=== PATIENT | female | born 1985 | race Caucasian/White ===

== ENCOUNTER 2016-10-11 03:25 | Inpatient (IN) | payer BC ==
[~2016-10-11] VITALS: Ht 172.7 cm; Wt 88.2 kg
[~2016-10-11 03:25] MED LIST: MTR600X PO; PRENTAB26 PO
[2016-10-11] MEDS ORDERED: LACTATED RINGER'S 1000ML 1,000 ML IV PRN (04:09)
[2016-10-11] MEDS ORDERED: LACTATED RINGER'S 1000ML 1,000 ML IV SCH ×2 (04:09→08:48)
[2016-10-11 04:53] LABS: HEMATOCRIT 35.7 % (37-47); MEAN CELL VOLUME 87.1 fL (80-100); MEAN CORPUSCULAR HEMOGLOBIN 28.8 pg (25-34); MEAN CORPUSCULAR HGB CONC 33.1 g/dl (32-36); MEAN PLATELET VOLUME 8.6 fL (7.4-10.4); PLATELET COUNT 189 K/uL (130-400); WHITE BLOOD COUNT 14.44 K/uL (4.8-10.8)
[2016-10-11] MEDS ORDERED: BUPIVACAINE 0.25% 30 ML VIAL ONE (05:02)
[2016-10-11] MEDS ORDERED: EpHEDrine SULFATE INJ 50 MG/ML AMP ONE (05:02)
[2016-10-11] MEDS ORDERED: FENTANYL 2MCG/ML ROPIV 1.25MG/ML 100ML BAG EPI ONE (05:02)
[2016-10-11] MEDS ORDERED: FENTANYL CITRATE INJ 50 MCG/1 ML 2 ML VIAL ONE (05:03)
--- NOTE | 2016-10-11 05:05 | HISTORY & PHYSICAL EXAMINATION ---
DATE OF ADMISSION: 10/11/2016 HISTORY OF PRESENT ILLNESS: The patient is a 31-year-old G3, P1 at 40 weeks and 2 days who presented to labor and delivery with contractions. She had no shortness of breath, no chills, no fever. The patient's due date is 10/09/2016. She was examined by a nurse and found to be 6 cm, 90% effaced and 0 station. The patient is therefore admitted for labor. COURSE: Unremarkable. LABS: Blood type A positive, antibody negative, rubella immune, GBS negative. RPR nonreactive. PAST MEDICAL HISTORY: History of anxiety and migraines. PAST SURGICAL HISTORY: History of breast biopsy, colposcopy and dental surgery as well as a D and C. ALLERGIES: No known drug allergies. MEDICATIONS: vitamins. FAMILY HISTORY: Noncontributory. 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 PHYSICAL EXAMINATION: GENERAL: Well-developed, well-nourished white female in labor discomfort. HEART: S1, S2, regular rhythm and rate. LUNGS: Clear to auscultation bilaterally. ABDOMEN: Gravid. PELVIC: By nurse is 6 cm, 90% effaced and 0 station. EXTREMITIES: No cyanosis, clubbing or edema. ASSESSMENT AND PLAN: A 31-year-old G3, P1 at 40 weeks and 2 days in labor. Plan is to admit and anticipate vaginal delivery.
[2016-10-11] MEDS ORDERED: NALOXONE HCL INJ 1 MG in SODIUM CHLORIDE 0.9% 1000ML 1,000 ML IV PRN (05:16)
[2016-10-11] MEDS ORDERED: LACTATED RINGER'S 1000ML 500 ML IV PRN (05:16)
[2016-10-11] MEDS ORDERED: EpHEDrine SULFATE INJ 50 MG/ML AMP IV PRN (05:30)
[2016-10-11] MEDS ORDERED: FENTANYL 2MCG/ML ROPIV 1.25MG/ML 100ML BAG EPI PRN (05:30)
[2016-10-11] MEDS ORDERED: ONDANSETRON INJ 2 MG/ML 2 ML VIAL IV PRN (05:30)
[2016-10-11] MEDS ORDERED: NALBUPHINE HCL INJ 10 MG/ML AMP IV PRN (05:30)
[2016-10-11] MEDS ORDERED: NALOXONE HCL INJ 0.4 MG/1 ML VIAL/CARP IV PRN (05:30)
[2016-10-11] MEDS ORDERED: DiphenhydrAMINE HCL 50 MG/ML VIAL IV PRN (05:30)
[2016-10-11 06:07] VITALS: Ht 172.7 cm; Wt 88.2 kg
--- NOTE | 2016-10-11 07:54 | Progress Note ---
Progress Note Date of Service Oct 11, 2016. Progress Note cervix fully dilated/+1 FHT Cat 1 will start to push
[2016-10-11] MEDS ORDERED: OXYTOCIN 30 UNITS/500ML NSS IV ONE (08:07)
--- NOTE | 2016-10-11 08:58 | Vaginal Delivery Summary ---
Vaginal Delivery Summary live male BINTA over intact perineum with nuchal cord x1 reduced at delivery. delayed cord clamping followed by cord blood and spontaneous delivery of placenta. first degree tear repaired with 1% Lidocaine and 3/0 Vicryl suture. Final sponge, needle and instrument count are correct. Mom and baby stable. EBL 200 ml. b
[2016-10-11] MEDS ORDERED: OXYTOCIN 30 UNITS/500ML NSS IV PRN (09:00)
[2016-10-11] MEDS ORDERED: LANOLIN OINT EXT PRN ×2 (09:00)
[2016-10-11] MEDS ORDERED: ACETAMINOPHEN/CODEINE 300/30MG TAB PO PRN ×2 (09:00)
[2016-10-11] MEDS ORDERED: BENZOCAINE 20% AER SPR 82.5 GM CAN EXT PRN (09:00)
[2016-10-11] MEDS ORDERED: HYDROCORTISONE ACETATE 25 MG SUPP PR PRN (09:00)
[2016-10-11] MEDS ORDERED: OXYCODONE/ACETAMINOPHEN 5-325 TAB PO PRN (09:00)
[2016-10-11] MEDS ORDERED: ACETAMINOPHEN 325 MG TAB PO PRN (09:00)
[2016-10-11] MEDS ORDERED: SUPERCREAM 0.870 % 15GM JAR EXT PRN (09:00)
[2016-10-11] MEDS ORDERED: DIPHTHERIA/TETANUS/PERTUSSIS 0.5 ML SYR/VIAL IM. ONE (09:00)
--- NOTE | 2016-10-11 10:19 | Anesthesia Procedure Note ---
Anesthesia Epidural Removal Nt Date & Time Oct 11, 2016 at 10:18 Vital Signs Pain Intensity: 0.0 Notes Mental Status: alert / awake / arousable, participated in evaluation Nausea / Vomiting: adequately controlled Pain: adequately controlled Airway Patency, RR, SpO2: stable & adequate BP & HR: stable & adequate Hydration State: stable & adequate Neuraxial Anesthesia: was administered Anesthetic Complications: no major complications apparent, pt satisfied with anesthetic care Epidural: removed without complications, with tip intact
[2016-10-11] MEDS: IBUPROFEN 600 MG TAB PO PRN (12:40)
[2016-10-11 15:15] VITALS: BP 115/72; PULSE 83; TEMP 37.2; O2SAT 96
--- NOTE | 2016-10-11 17:39 | Progress Note ---
Progress Note Date of Service Oct 11, 2016. Progress Note I was called by the post- nurse to evaluate this patient for a possible post-dural puncture headache. She delivered vaginally with an epidural this A.M. and later in the morning she noticed that when she got up she had a throbbing frontal headache and when she lies down it goes away immediately. She denies other symptoms. She was given a mountain dew and ibuprofen 600 mg which lessened the pain. I told her I thought it was a spinal headache and explained what that was. I offered her an epidural blood patch which I could do right away but she said she would rather wait until the morning to see if her symptoms were better. I told her we would give her fluids, caffeine and analgesics. When I mentioned that she could have percocet she laughed and said, gosh it's not that bad. I told her that if she changes her mind tonight I would be willing to do the blood patch then.
[2016-10-11] MEDS ORDERED: LACTATED RINGER'S 1000ML 1,000 ML IV ONE (17:45)
[2016-10-11 19:20] VITALS: BP 99/56; PULSE 86; TEMP 37.2; O2SAT 97
[2016-10-11] MEDS: DOCUSATE SODIUM 100 MG CAP PO SCH (20:20)
--- NOTE | 2016-10-12 00:05 | Progress Note ---
Progress Note Date of Service Oct 11, 2016. Progress Note After informed consent was given, the patient was given an epidural blood patch. She was placed in the sitting position and her back was prepped with duraprep. A sterile drape was applied to her back and the L3-4 interspace was infiltrated subcutaneously with three ml of 1% lidocaine. A 17 gauge tuohy needle was inserted and the epidural space was accessed using the loss of resistance technique. Under sterile conditions 20 ml of blood was drawn from her right antecubital vein by a rd lab technician. Eighteen ml of autologous blood was injected into the epidural space and she was laid flat for approximately forty- five minutes. The patient tolerated the procedure well and their were no apparent complications.
[2016-10-12] MEDS: IBUPROFEN 600 MG TAB PO PRN ×2 (00:50→12:39)
[2016-10-12 01:00] VITALS: BP 105/60; PULSE 72; TEMP 36.7
[2016-10-12 04:40] VITALS: BP 85/50; PULSE 80; TEMP 37; O2SAT 97
[2016-10-12] MEDS ORDERED: PRENATAL VITAMIN TAB PO SCH (08:00)
[2016-10-12] MEDS ORDERED: FERROUS SULFATE 325 MG TAB PO SCH (08:00)
--- NOTE | 2016-10-12 08:00 | OB/GYN Progress Note ---
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 Patient is seen and examined. She feels well, no complaints. likes to be discharged this afternoon Ambulating without dizziness Voiding without difficulty Tolerating regular diet with out N&V Bleeding is minimal No fever/ chills/ CP/ SOB/ N&V/ Leg pain Breast feeding without problems Date Time Temp Pulse Resp B/P Pulse Ox O2 Delivery O2 Flow Rate FiO2 10/12/16 04:40 37.0 80 16 85/50 97 Room Air 10/12/16 01:05 Room Air 10/12/16 01:00 36.7 72 20 105/60 Room Air 10/11/16 19:20 37.2 86 16 99/56 97 Room Air 10/11/16 15:15 37.2 83 18 115/72 10/11/16 15:15 96 Room Air Last 24 Hours Test 10/12/16 04:44 PE: General: Alert, orientedx3, NAD Abd: soft, NT, fundus firm, below Umbilicus Perineum intact, Lochia rubra minimal Ext; NT, no edema AP: 31 yo s/p , ppd# 1 VSS Afebrile doing well Continue routine care All questions were answered Desires D/C home this afternoon H&H pending
[2016-10-12 08:45] VITALS: BP 99/62; PULSE 91; TEMP 36.8; O2SAT 97
[2016-10-12] MEDS: DOCUSATE SODIUM 100 MG CAP PO SCH (08:45)
[2016-10-12 09:37] LABS: HEMATOCRIT 31.4 % (37-47)
--- NOTE | 2016-10-12 09:44 | Discharge Instructions ---
Discharge Instructions Date of Service Oct 12, 2016. Admission Reason for Admission: Discharge Discharge Diagnosis / Problem: Discharge Goals Goal(s): Routine recovery after delivery Medications Continue Dispensed Medications: supercream, dermaplast, inhaler, lansinoh Activity Recommendations Activity Limitations: as noted below Lifting Limitations: gradually increase as tolerated Exercise/Sports Limitations: until after follow-up appointment May Resume Sexual Activity: after follow-up appointment Shower/Bathe: no limitations Driving or Machine Use: ACTIVITY RECOMMENDATIONS: * Gradual return to full activity over the next 2-3 weeks. * No lifting - nothing heavier than baby over the next 2-3 weeks. * Do not engage in vigorous exercise, sexual activity or sports until cleared by your physician. * Do not drive or operate any motorized equipment until cleared by your physician. * You may shower/bathe daily. BREAST CARE: If you are not breast feeding: * Wear a supportive bra 24 hours a day for one to two weeks. * Avoid stimulating your breasts and nipples as much as possible during the first few weeks after delivery. * When taking a shower, have the warm water hit your back, not breasts. * When your breasts feel full, apply ice packs. Usually three to four times a day helps ease the discomfort. * Take a mild pain medication (Tylenol/Motrin) when you are uncomfortable. If breast feeding: * Use breast milk to lubricate nipples. Lansinoh cream may be used for sore nipples. You do not need to remove cream prior to breast feeding. If using a different brand of cream, check the label for directions regarding removal of cream prior to nursing. * Wear a supportive bra. * If having problems with breasts or breast feeding, call a fashion consultant sales or your health care provider. EPISIOTOMY CARE: After delivery, if you have an episiotomy (stitches), the following steps will ease discomfort and aid healing. * For the first 24 hours after delivery, place ice packs next to your episiotomy to help reduce swelling. * After the first 24 hour-period, sitz baths, either portable or in the tub, are suggested. A shower with a shower arm sprayed over the episiotomy may be comforting. * Lin care should be done after each voiding and bowel movement. Squirt warm water from a plastic bottle over the perineum (region of the body between the anus and urinary opening) and pat dry. * Use Dermoplast to ease discomfort. Shake container. [place] directly over the episiotomy. * Place a Tucks on a clean sanitary pad next to your episiotomy. OVER THE COUNTER MEDICATION: * For discomfort or pain, you may use Acetaminophen (Tylenol), Ibuprofen (Advil ), or Naproxen (Aleve) following the package directions. * For constipation you may use Colace following the package directions. SPECIAL CARE INSTRUCTIONS: When you are discharged from the hospital, it is important for you to follow the instructions listed below: * During the first week at home, you should be able to care for yourself and your baby. In addition, the usual light household activities are encouraged. * Limit your activities to the way you feel. Do not try to clean the house or move furniture. Be sensible. * If you actively engage in sports and have done so up until the time of your delivery, you may resume these activities as soon as you feel able. This may take up to one month or even longer. Use good judgment. * Continue to take your vitamins for at least six weeks after the of your baby. * Your diet need not be limited unless you were on a special diet before your delivery. Breast-feeding mothers need around 2500 calories per day and at least 64-80 ounces of fluid per day (8 to 10 glasses). * You should eat foods from the four major food groups. Crash diets or fad diets are to be avoided. Eating lean meats, fresh fruits and vegetables, low-fat dairy products, high fiber foods and a regular exercise program, will help you get back to your pre- weight without putting your health at risk. * Constipation is sometimes a problem after delivery. Take a mild laxative as needed. If breast feeding, Milk of Magnesia is acceptable to use. You may use a suppository or Fleets enema if no episiotomy. * A daily shower or tub bath is suggested. Be sure to thoroughly and gently dry the perineum. * A bloody vaginal discharge will usually continue until around four weeks post . A small amount of bleeding may continue for as long as six weeks. Vaginal discharge changes from the bright red bleeding after delivery to pink then brownish and finally yellowish-pink before becoming white and disappearing. * Bleeding may increase with activity. Your first period may come in 4-8 weeks. If you are breast feeding, your period may be delayed even longer. * [place] (sex) can begin whenever both you and your partner feel comfortable and do not have any form of genital infection. It is recommended that you wait until after your return appointment and discuss with your physician. If you have questions, please talk to your health care practitioner. A condom should be used to prevent infection and . * Foreplay, gentle intercourse and lubrication is very important the first several times to prevent pain. A water-based lubricant such as K-Y jelly or Astroglide may be used. * Tampons may be used six weeks after delivery. * Douching should be avoided for 6 weeks after delivery. * If you have RH negative blood and your baby is RH positive, you will receive RHOGAM by injection prior to discharge. The nurse will give you a card to keep with you that has the date and place that you received RHOGAM after delivery. * During your care, you had a Rubella screen done to check for the presence of rubella antibodies in your blood. If your test was negative, you will receive a Rubella vaccine prior to discharge. This vaccine may cause a fever, soreness at the injection site and flu-like symptoms. If these symptoms persist, notify your health care practitioner. is not advised for three months after a Rubella vaccine. There is a higher chance of having a baby with defects if conceived within three months of getting the vaccine. * If you were discharged 24 hours from delivery or before 48 hours: Visiting nurses will come to your home 48 hours after discharge to assess you and your baby. The visiting nurse will meet with you while you are in the hospital to arrange a time and get directions to your home. * Verbalizes understanding of car seat law as reviewed with patient nursing. * Car Seat hand-out given and reviewed with patient by nursing. * Shaken baby information reviewed with patient by nursing. Call you doctor if: * Heavy bleeding (saturating several pads an hour) or passing clots the size of your fist. * A fever >101 degrees F (38.3 degrees C) on two occasions four hours apart and/or chills. * Unusual pain in the pelvic or vaginal areas. * "Baby Blues" lasting longer than two weeks. If you have any questions or concerns, call your health care practitioner at . FOLLOW-UP VISIT: * Please call the office at to schedule a 6 week examination. It is important you keep this appointment. * It is important for you to make arrangements for either yearly or twice yearly check-ups thereafter. . Current Hospital Diet Patient's current hospital diet: Regular OB Diet Discharge Diet Recommended Diet: Regular Diet Pending Studies Studies pending at discharge: no Medical Emergencies . Who to Call and When: Medical Emergencies: If at any time you feel your situation is an emergency, please call 911 immediately. . Non-Emergent Contact Non-Emergency issues call your: Data Solutions Architect, Surgeon Call Non-Emergent contact if: temperature is above 100.5, your pain is not controlled, wound has increased drainage . . "Provider Documentation" section prepared by Macario Bray. . VTE Core Measure Inpt VTE Proph given/why not?: Treatment not indicated
--- NOTE | 2016-10-12 11:40 | Anesthesiology Progress Note ---
Anesthesia Progress Note Date of Service Oct 12, 2016. Progress Notes The patient had an epidural for pain relief during labor. Subsequently, she developed a dural puncture headache. Dr. Byrd placed an epidural blood patch last night. The patient feels much better today. Her headache has resolved. She is otherwise doing well.
[2016-10-12 13:42] VITALS: BP_DIAS 62; PULSE 91; TEMP 36.8
[2016-10-12] MEDS ORDERED: BISACODYL 5 MG TABEC PO SCH (20:00)
[2016-10-13] MEDS ORDERED: BISACODYL 10 MG SUPP PR PRN (07:00)
== END 2016-10-12 15:15 | disposition home or self-care (01) | DRG 775 ==
LOC: C.OPB 03:25 → C.LD 03:26 → C.OPB 04:14 → C.OBG 14:08
PROVIDERS: ADMIT Obstetrics & Gynecology; ATTEND Obstetrics & Gynecology
PROC: 0HQ9XZZ Repair Perineum Skin, External Approach (ICD-10-PCS; principal; 2016-10-11)
PROC: 10E0XZZ Delivery of Products of Conception, External Approach (ICD-10-PCS; principal; 2016-10-11)
PROC: 3E0S3GC Introduction of Other Therapeutic Substance into Epidural Space, Percutaneous Approach (ICD-10-PCS; 2016-10-11)
DX: O89.4 Spinal and epidural anesthesia-induced headache during the puerperium (principal); O70.0 First degree perineal laceration during delivery; O69.1XX0 Labor and delivery complicated by cord around neck, with compression, not applicable or unspecified; Z37.0 Single live birth; Z3A.40 40 weeks gestation of pregnancy